=== PATIENT | male | born 1930 | race Caucasian/White ===

== ENCOUNTER 2017-03-25 20:22 | Inpatient (IN) | payer MEDICARE, OTHER ==
[~2017-03-25] VITALS: Ht 177.8 cm; Wt 93.3 kg
[~2017-03-25 20:22] MED LIST: ANTIVERT 25MG25 MG PO; ASPI325T6 PO; ASPIRIN E.C.325 MG PO; CRESTOR 10MG10 MG PO; CRESTOR10 MG PO; ENALAPRIL; FISH OIL CONCEN1 SGL PO; FLOMAX 0.40.4 MG/CAP PO; HCTZ 25MG TAB25 MG PO; HCTZ 25MG25 MG PO; NORCO 325 MG-7.1 TAB PO; PEN-VEE K250 MG PO; PENICILLIN V250 MG PO; PROTONIX 40MG T40 MG PO; STOOL SOFTENER100 M2 PO; VASOTEC 5MG5 MG/TAB PO; VASOTEC20 MG PO; VASOTEC5 MG PO
[2017-03-25 20:46] LABS: ADJUSTED CALCIUM 8.6 mg/dL (8.4-10.2); ALANINE AMINOTRANSFERASE 41 U/L (21-72); ALBUMIN 3.7 gm/dL (3.5-5.0); ALKALINE PHOSPHATASE 73 U/L (50-136); ANION GAP 9 mmol/L (7-16); BILIRUBIN,TOTAL 0.7 mg/dL (0.0-1.0); BLOOD UREA NITROGEN 11 mg/dL (9-20); CALCIUM 8.4 mg/dL (8.4-10.2); CARBON DIOXIDE 25 mmol/L (22-30); CHLORIDE 102 mmol/L (98-107); CREATININE, serum 0.91 mg/dL (0.66-1.25); GLUCOSE 137 mg/dL (74-106); POTASSIUM 3.3 mmol/L (3.4-5.0); SODIUM 136 mmol/L (137-145); TOTAL PROTEIN 6.7 gm/dL (6.4-8.2)
[2017-03-25 20:47] LABS: BASO # 0.1 (0.0-0.2); BASO % 0.6 % (0.0-2.0); EOS # 0.2 (0.0-0.7); EOS % 1.8 % (0-4.0); GRAN # 9.3 (1.4-6.5); GRAN % 73.4 % (42.2-75.2); HEMATOCRIT 40.6 % (42.0-52.0); HEMOGLOBIN 13.5 g/dl (13.5-18.0); LYMPH # 1.7 (1.2-3.4); LYMPH % 13.3 % (20.0-51.0); MEAN CELL VOLUME 93 fl (80.0-100.0); MEAN CORPUSCULAR HEMOGLOBIN 31 pg (27.0-31.0); MEAN CORPUSCULAR HGB CONC 33 g/dl (33.0-37.0); MEAN PLATELET VOLUME 9.5 fl (7.4-10.4); MONO # 1.3 (0.1-0.6); MONO % 10.6 % (1.7-9.3); PLATELET COUNT 222 K/mm3 (130-400); RED BLOOD COUNT 4.37 M/mm3 (4.20-5.60); REDCELL DISTRIBUTION WIDTH-CV 12.8 % (11.5-14.5); WHITE BLOOD COUNT 12.7 K/mm3 (4.8-10.8)
[2017-03-25 20:51] LABS: INR 1.1 (0.8-3.0); PROTHROMBIN TIME 12.2 SECONDS (9.7-12.8)
[2017-03-25 20:54] LABS: PARTIAL THROMBOPLASTIN TIME 26.5 SECONDS (26.0-37.0)
[2017-03-25 20:59] LABS: TROPONIN-I < 0.012 ng/mL (0.000-0.034)
[2017-03-26] VITALS (9 sets, daily range): BP systolic 120–158; BP diastolic 40–109; PULSE 66–83; TEMP 97.5–98.6
[2017-03-27] VITALS (14 sets, daily range): BP systolic 90–149; BP diastolic 51–71; PULSE 67–95; TEMP 98–99.8
== END 2017-03-27 15:52 | disposition short-term general hospital (02) | DRG 287 ==
LOC: COL.ER 20:22 → MEDICAL 21:37
PROVIDERS: Emergency Medicine
PROC: B2111ZZ Fluoroscopy of Multiple Coronary Arteries using Low Osmolar Contrast (ICD-10-PCS; principal; 2017-03-27)
PROC: B41F1ZZ Fluoroscopy of Right Lower Extremity Arteries using Low Osmolar Contrast (ICD-10-PCS; 2017-03-27)
DX: I25.110 Atherosclerotic heart disease of native coronary artery with unstable angina pectoris (principal); I10 Essential (primary) hypertension; Z87.891 Personal history of nicotine dependence; E87.6 Hypokalemia; I65.02 Occlusion and stenosis of left vertebral artery; I65.21 Occlusion and stenosis of right carotid artery
CPT/HCPCS: A9502; A9585; C1760; C1894; J2250; J2785; J3010; J7030; Q9967

== ENCOUNTER 2017-08-01 14:43 | Outpatient (RCR) | payer MEDICARE, OTHER | END 2017-08-03 | disposition home or self-care (01) | LOC: COL.CR | DX: Z48.812 Encounter for surgical aftercare following surgery on the circulatory system (principal); Z95.5 Presence of coronary angioplasty implant and graft; I25.10 Atherosclerotic heart disease of native coronary artery without angina pectoris ==

== ENCOUNTER 2017-08-08 14:55 | Outpatient (RCR) | payer MEDICARE, OTHER ==
[~2017-08-08 14:55] MED LIST changes: +ANTIVERT 12.512.5 MG PO; -ANTIVERT 25MG25 MG PO; -ASPI325T6 PO; +ASPIRIN E.C. 8181 MG PO; -STOOL SOFTENER100 M2 PO; +STOOL SOFTENER240 M1 PO
[2017-09-03] MEDS ORDERED: PLAVIX 75MG TAB75 MG PO (20:37)
[2017-09-03] MEDS ORDERED: REQUIP 0.5MG0.5 MG PO (20:39)
== END 2017-11-02 | disposition home or self-care (01) ==
LOC: COL.CR
DX: Z48.812 Encounter for surgical aftercare following surgery on the circulatory system (principal); Z95.5 Presence of coronary angioplasty implant and graft; I25.10 Atherosclerotic heart disease of native coronary artery without angina pectoris

== ENCOUNTER 2017-09-03 20:08 | Emergency (ER) | payer MEDICARE, OTHER ==
[~2017-09-03] VITALS: Ht 175.3 cm; Wt 93.6 kg
[2017-09-03 20:15] VITALS: TEMP 98.1
[2017-09-03] MEDS ORDERED: PLAVIX 75MG TAB75 MG PO (20:37)
[2017-09-03] MEDS ORDERED: REQUIP 0.5MG0.5 MG PO (20:39)
[2017-09-03 21:45] VITALS: BP 177/91; PULSE 82
== END 2017-09-03 21:45 | disposition home or self-care (01) ==
LOC: COL.ER 20:08
DX: S00.83XA Contusion of other part of head, initial encounter (principal); I10 Essential (primary) hypertension; E78.5 Hyperlipidemia, unspecified; Z79.02 Long term (current) use of antithrombotics/antiplatelets; Z79.82 Long term (current) use of aspirin; W01.198A Fall on same level from slipping, tripping and stumbling with subsequent striking against other object, initial encounter; Y93.01 Activity, walking, marching and hiking; Y92.410 Unspecified street and highway as the place of occurrence of the external cause